=== PATIENT | male | born 1955 | race Caucasian/White ===

== ENCOUNTER 2018-07-26 21:19 | Observation (INO) | payer MEDICAID, MEDICARE ==
[2018-07-26] MEDS ORDERED: NS 0.9% 1000 ML*IV.FLUID IV ONE (21:30)
--- NOTE | 2018-07-26 21:57 | ED ---
Shortness of Breath - HPI Summary HPI Summary: Pt is a 62 year old M presenting to the ED with a chief complaint of shortness of breath. The pt denies chest pain or abd problems. He is presently being treated for bronchitis, and states his lungs feel as though theyre burning, he is sweaty, and has the chills. The pt is a current every day smoker. - History of Current Complaint Chief Complaint: EDShortnessOfBreath Time Seen by Provider: 07/26/18 21:29 Hx Obtained From: Patient Onset/Duration: Gradual Onset, Lasting Days, Still Present Timing: Constant Current Severity: Mild Dyspnea At: Exertion Aggrevating Factors: Movement, Deep Breaths Alleviating Factors: Upright Position Associated Signs & Symptoms: Negative - chest pain, Chills, Diaphoresis - Allergy/Home Medications Allergies/Adverse Reactions: Allergies Allergy/AdvReac Type Severity Reaction Status Date / Time No Known Allergies Allergy Verified 07/26/18 21:25 PMH/Surg Hx/FS Hx/Imm Hx Previously Healthy: Yes Endocrine/Hematology History: Denies: Hx Blood Disorders Sensory History: Denies: Hx Deafness - Immunization History Date of Tetanus Vaccine: unk Date of Influenza Vaccine: unk Infectious Disease History: No Infectious Disease History: Denies: Traveled Outside the [place] in Last 30 Days - Family History Known Family History: Negative: Hypertension - Social History Alcohol Use: None Substance Use Type: Reports: None Smoking Status (MU): Heavy Every Day Tobacco Smoker Review of Systems Positive: Chills, Skin Diaphoresis Negative: Chest Pain Positive: Shortness Of Breath Negative: Abdominal Pain All Other Systems Reviewed And Are Negative: Yes Physical Exam - Summary Physical Exam Summary: Appearance: Well-appearing, Well-nourished, lying in bed comfortably Skin: Warm, dry, no obvious rash Eyes: sclera anicteric, no conjunctival pallor ENT: mucous membranes moist, pharynx appears normal Neck: Supple, nontender Respiratory: Clear to auscultation, no signs of respiratory distress Cardiovascular: Normal S1, S2. No murmurs. Normal distal pulses in tibial and radial bilaterally. Abdomen: Soft, nontender, normal active bowel sounds present Musculoskeletal: Normal, Strength/ROM Intact Neurological: A&Ox3, awake and alert, mentation is normal, speech is fluent and appropriate Psychiatric: affect is normal, does not appear anxious or depressed Triage Information Reviewed: Yes Vital Signs On Initial Exam: Initial Vitals Temp Pulse Resp BP Pulse Ox 99.0 F 98 18 145/89 96 07/26/18 21:20 07/26/18 21:20 07/26/18 21:20 07/26/18 21:20 07/26/18 21:20 Vital Signs Reviewed: Yes Diagnostics - Vital Signs Vital Signs Temp Pulse Resp BP Pulse Ox 07/26/18 21:20 99.0 F 98 18 145/89 96 - Laboratory Result Diagrams: 07/26/18 21:58 07/26/18 21:58 Lab Statement: Any lab studies that have been ordered have been reviewed, and results considered in the medical decision making process. - Radiology CXR Xray Interpretation: Positive (See Comments) - Atelectasis vs. infiltrate of the right lung Radiology Interpretation Completed By: ED Physician - Radiologist has not yet reviewed this report. - EKG 2208 Cardiac Rate: NL - 95bpm EKG Rhythm: Sinus Rhythm ST Segment: Normal Ectopy: None EKG Interpretation: RBBB. Course/Dx - Course Course Of Treatment: Pt is a 62 year old M presenting to the ED with a chief complaint of sob. The pt denies chest or abd pain. The pt is currently being treated for bronchitis, and states he feels as though his lungs are burning and that he is sweating and has chills. The pt is a smoker. - Diagnoses Provider Diagnoses: Pneumonia Discharge - Sign-Out/Discharge Documenting (check all that apply): Patient Departure - Discharge Plan Condition: Stable Disposition: ADMITTED TO [facility] - Billing Disposition and Condition Condition: STABLE Disposition: Admitted to [facility] - Attestation Statements Document Initiated by Arunibe: Yes Documenting Scribe: Zhane Turner Provider For Whom Uriel is Documenting (Include Credential): Lowell Gillette MD. Scribe Attestation: Zhane Rose, callied for Lowell Gillette MD. on 07/27/18 at 0410. Scribe Documentation Reviewed: Yes Provider Attestation: The documentation as recorded by the scribe, Zhane Turner accurately reflects the service I personally performed and the decisions made by me, Lowell Gillette MD. Consult Consult: 0015 - Spoke with Dr. Francois about the patient's condition, he will be the accepting physician to [facility] for the patient.
[2018-07-26 22:35] LABS: ABS Basophils 0.1 10^3/ul (0-0.2); ABS Eosinophils 0.5 10^3/ul (0-0.6); ABS Lymphocytes 1.2 10^3/ul (1.0-4.8); ABS Monocytes 0.8 10^3/ul (0-0.8); ABS Neutrophils 8.6 10^3/ul (1.5-7.7); ABS Nucleated RBC 0 10^3/ul; Eosinophil % 4.5 % (0-6); Hematocrit 39 % (42-52); Hemoglobin 12.8 g/dl (14.0-18.0); Lymphocyte % 10.6 % (25-47); Mean Corpuscular HGB Conc 33 g/dl (31-36); Mean Corpuscular Hemoglobin 28 pg (27-31); Mean Corpuscular Volume 85 fL (80-94); Mean Platelet Volume 8.2 um3 (7.4-10.4); Nucleated Red Blood Cells % 0; Platelet Count 296 10^3/ul (150-450); Red Blood Count 4.54 10^6/ul (4.00-5.40); Red Cell Distribution Width 15 % (10.5-15); White Blood Count 11.3 10^3/ul (3.5-10.8)
[2018-07-26 22:48] LABS: EGFR Non-African American 80.9 (>60)
[2018-07-26 22:52] LABS: INR 0.98 (0.77-1.02)
[2018-07-26 23:01] LABS: Urine Appearance Clear; Urine Blood Negative (Negative); Urine Color Straw; Urine Ketones Negative (Negative); Urine Protein Negative (Negative); Urine Specific Gravity 1.002 (1.010-1.030); Urine Urobilinogen Negative (Negative)
[2018-07-27] MEDS ORDERED: cefTRIAXone(*) 1 GM in NS 0.9% 50 ML* 50 ML IVPB ONE (00:10)
[2018-07-27] MEDS ORDERED: Azithromycin IV(*) 500 MG in NS 0.9% 250 ML* 250 ML IVPB ONE (00:10)
[2018-07-27] MEDS ORDERED: Dextrose 50% Syringe 50 ML* 25 GM/50 ML SYRINGE IV PUSH PRN (04:24)
[2018-07-27] MEDS: Enoxaparin(*) 40 MG/0.4 ML SYR SUBCUT SCH (04:37)
[2018-07-27] MEDS ORDERED: Albuterol 2.5 MG/3 ML NEB.SOL* (0.083%) INH PRN (04:50)
[2018-07-27] MEDS ORDERED: Spiriva Inhaler DEVICE* 1 EACH DEVICE SCH (08:00)
[2018-07-27] MEDS: Tiotropium CAP.INH* CAP.INH/18 MCG (USE ORDER SET !) INH SCH (08:10)
[2018-07-27] MEDS ORDERED: Polyethylene Glycol 3350 BTL* 238 GM BTL PO SCH (09:00)
--- NOTE | 2018-07-27 09:02 | RAD ---
INDICATION: Shortness of breath. Mental status change. Chronic obstructive pulmonary disease. COMPARISON: No relevant prior exams available on the [facility] [place] for comparison. TECHNIQUE: Dual energy PA and routine lateral views of the chest were obtained. REPORT: Elevated lung volumes and both diffuse mild prominence of the interstitial markings and patchy rarefaction of the mid to upper lung zone interstitial markings. The heart, pulmonary vasculature, and mediastinal contours are unremarkable. Healed RIGHT fifth posterior and LEFT seventh and eighth posterior rib fractures. No acute rib fracture evident. IMPRESSION: #. Stigmata of obstructive lung disease. No acute pulmonary or cardiac process evident. R2
[2018-07-27] MEDS: Polyethylene Glycol 3350* 17 GM PACKET PO SCH (09:19)
[2018-07-27] MEDS: Omeprazole CAP* 20 MG PO SCH (09:20)
[2018-07-27] MEDS: Finasteride TAB* 5 MG PO SCH (09:20)
[2018-07-27] MEDS: CloZAPine TAB* 100 MG TAB PO SCH (09:20)
[2018-07-27] MEDS: Docusate CAP* 100 MG PO SCH ×2 (09:20→20:17)
[2018-07-27] MEDS: Isosorbide Mononitrate ER TAB* 30 MG PO SCH (09:20)
[2018-07-27] MEDS: Insulin LISPRO* 1 UNITS UNIT SUBCUT SCH ×4 (09:21→20:17)
[2018-07-27] MEDS: Aspirin EC TAB* 81 MG TAB.EC PO SCH (09:21)
--- NOTE | 2018-07-27 13:39 | PN ---
Subjective Date of Service: 07/27/18 Interval History: Patient is feeling relatively well. No SOB. No CP. Denies wheezing. Denies cough , but nurse reports he has had an intermittently productive cough. Patient denies abdominal pain, diarrhea, dysuria, or other pain. Family History: Unchanged from Admission Social History: Unchanged from Admission Past Medical History: Unchanged from Admission Objective Active Medications: Albuterol (Ventolin 2.5 Mg/3 Ml Neb.Marge*) 2.5 mg INH [id number] AWAKE PRN PRN Reason: SOB/WHEEZING Aspirin (Aspirin Ec Tab*) 81 mg PO DAILY [facility] Last Admin: 07/27/18 09:21 Dose: 81 mg Atorvastatin Calcium (Lipitor*) 10 mg PO 2100 [facility] Clozapine (Clozapine Tab*) 400 mg PO QPM [facility] Clozapine (Clozapine Tab*) 100 mg PO DAILY [facility] Last Admin: 07/27/18 09:20 Dose: 100 mg Device (Tiotropium Inhaler Device*) 1 each .SEE ORDER .USE w/ SPIRIVA CAPS [facility] Dextrose (D50w Syringe 50 Ml*) 12.5 gm IV PUSH .FOR FS < 60 - SS PRN PRN Reason: FS < 60 Docusate Sodium (Colace Cap*) 100 mg PO BID [facility] Last Admin: 07/27/18 09:20 Dose: 100 mg Enoxaparin Sodium (Lovenox(*)) 40 mg SUBCUT Q24H [facility] Last Admin: 07/27/18 04:37 Dose: 40 mg Finasteride (Proscar Tab*) 5 mg PO DAILY [facility] Last Admin: 07/27/18 09:20 Dose: 5 mg Ceftriaxone Sodium 1 gm/ (Sodium Chloride) 50 mls @ 200 mls/hr IVPB Q24H [facility] Azithromycin 500 mg/ Sodium (Chloride) 250 mls @ 250 mls/hr IVPB Q24H [facility] Insulin Glargine (Lantus(*)) 20 units SUBCUT QPM [facility] Insulin Human Lispro (Humalog*) 0 units SUBCUT ACHS [facility]; Protocol Last Admin: 07/27/18 12:18 Dose: 2 units Isosorbide Mononitrate (Imdur Er Tab*) 30 mg PO DAILY [facility] Last Admin: 07/27/18 09:20 Dose: 30 mg Omeprazole (Prilosec Cap*) 20 mg PO DAILY [facility] Last Admin: 07/27/18 09:20 Dose: 20 mg Polyethylene Glycol/Electrolytes (Miralax*) 17 gm PO QAM [facility] Last Admin: 07/27/18 09:19 Dose: 17 gm Senna (Senokot Tab*) 1 tab PO QPM [facility] Tiotropium [place] (Spiriva Cap.Inh*) 1 cap INH DAILY [facility] Last Admin: 07/27/18 08:10 Dose: 1 cap Vital Signs - 8 hr 07/27/18 07/27/18 07/27/18 07:38 08:00 08:10 Temperature 98.6 F Pulse Rate 77 80 Respiratory 19 19 Rate Blood Pressure 137/81 (mmHg) O2 Sat by Pulse 96 96 Oximetry Oxygen Devices in Use Now: None Appearance: Patient is a 62yo male who appears stated age and is sitting in the bed in NAD. Eyes: No Scleral Icterus, PERRLA Ears/Nose/Mouth/Throat: NL Teeth, Lips, Gums, Clear Oropharnyx, Mucous Membranes Moist Neck: NL Appearance and Movements; NL JVP, Trachea Midline Respiratory: Symmetrical Chest Expansion and Respiratory Effort, Clear to Auscultation Cardiovascular: NL Sounds; No Murmurs; No JVD, RRR, No Edema Abdominal: NL Sounds; No Tenderness; No Distention, No Hepatosplenomegaly Lymphatic: No Cervical Adenopathy Extremities: No Edema, No Clubbing, Cyanosis Skin: No Rash or Ulcers, No Nodules or Sclerosis Neurological: Alert and Oriented x 3, NL Sensation, NL Muscle Strength and Tone , - - CN II-XII intact. Result Diagrams: 07/26/18 21:58 07/26/18 21:58 Microbiology and Other Data: Microbiology 07/27/18 09:30 Gram Stain - Final Sputum 07/27/18 09:30 Legionella Urinary Antigen - Final Urine Negative Legionella Antigen Streptococcus pneumoniae Ag Screen - Final Negative S. pneumo Antigen 07/27/18 01:40 Nasal Screen MRSA (PCR) - Final Nasal Mrsa Not Detected Assess/Plan/Problems-Billing Assessment: Patient is a 62yo male with a PMH for HTN, HLD, DM, schizophrenia, with ongoing tobacco abuse who is admitted with shortness of breath and cough and is being treated for CAP. - Patient Problems (1) CAP (community acquired pneumonia) Current Visit: Yes Status: Acute Code(s): J18.9 - PNEUMONIA, UNSPECIFIED ORGANISM SNOMED Code(s): 186709246 Comment: - Minimal symptoms - Negative Procalcitonin and CXR - Discontinue Antibiotics and monitor - Pulmonary toilet - No indication for steroids (2) Tobacco abuse Current Visit: Yes Status: Acute Code(s): Z72.0 - TOBACCO USE SNOMED Code( s): 975687722 Comment: - Counseled on the effect of smoking on his health. - Interested in pharmacologic aids for smoking cessation (3) HTN (hypertension) Current Visit: Yes Status: Acute Code(s): I10 - ESSENTIAL (PRIMARY) HYPERTENSION SNOMED Code(s): 94751625 Comment: - Normotensive - Continue Imdur (4) DMII (diabetes mellitus, type 2) Current Visit: Yes Status: Acute Comment: - Lantus and SSI - Good control (5) Schizophrenia Current Visit: Yes Status: Acute Code(s): F20.9 - SCHIZOPHRENIA, UNSPECIFIED SNOMED Code(s): 98541111 Comment: - Euthymic - Continue Clozapine - No signs of agranulocytosis (6) Full code status Current Visit: Yes Status: Acute Code(s): Z78.9 - OTHER SPECIFIED HEALTH STATUS SNOMED Code(s): 761905130 (7) DVT prophylaxis Current Visit: Yes Status: Acute Code(s): VZA9340 - SNOMED Code(s): 128130281 Comment: -Lovenox Status and Disposition: Observation
--- NOTE | 2018-07-27 13:51 | HP ---
ADMISSION HISTORY AND PHYSICAL: DATE OF ADMISSION: 07/27/18. PRIMARY CARE DOCTOR: Unknown. CHIEF COMPLAINT: Shortness of breath. HISTORY OF PRESENT ILLNESS: Mr. Su 62-year-old man with a history of schizophrenia, who presented to the emergency department this evening with shortness of breath. He is a poor historian, but he reports that he has a doctor over the area, who he does not know the name of, who treated him for a lung infection in the last week with amoxicillin and steroids. It sounds like he was thought to have COPD exacerbation. The patient does report fever, chills , and sweating as well as a cough, which is nonproductive. The patient denies any chest pain or palpitations. The patient does not know whether he has COPD or not. Denies use of any inhalers at home. The patient is a new resident at an institution called [facility] in the [facility]. It sounds like this is an assisted living or custodial for people with mental illness. He has a psychiatry provider that comes to the facility, named Erica, who prescribes those medications for him. PAST MEDICAL HISTORY: Includes schizophrenia, BPH, type 2 diabetes, GERD, hyperlipidemia, and constipation. PAST SURGICAL HISTORY: None. MEDICATIONS: On admission are: 1. Amoxicillin 500 mg p.o. q.12 hours. 2. Aspirin 81 mg p.o. daily. 3. Atorvastatin 20 mg p.o. q. p.m. 4. Clozapine 100 mg p.o. q. a.m. and 400 mg p.o. q. p.m. 5. Docusate 100 mg p.o. b.i.d. 6. Finasteride 5 mg p.o. daily. 7. Insulin glargine 20 units subcu daily. 8. Isosorbide mononitrate 30 mg p.o. daily. 9. Multivitamin 1 tab p.o. daily. 10. Pantoprazole 40 mg p.o. daily. 11. MiraLAX 2 packets p.o. q. a.m. 12. Prednisone 40 mg p.o. daily. 13. Senna 1 tab p.o. daily. ALLERGIES: None. FAMILY HISTORY: His father of black lung disease. Has 8 sisters and 1 brother who are in reasonable health. 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 He is . He has 1 child. His mother is his healthcare proxy and her name is Lluvia Su, and she lives in [place], [place]. He continues to smoke tobacco 1 pack per day. He denies alcohol or drug use. REVIEW OF SYSTEMS: The patient denies any anorexia. He does feel he has fevers. He denies any chest pain or palpitations. He is not sure about any cardiac history. The patient denies any hemoptysis, but has a cough and shortness of breath. The patient denies any abdominal pain, diarrhea, or constipation in the last 24 hours. Remainder of a 14-point review of systems is negative other than mentioned in the HPI. PHYSICAL EXAMINATION GENERAL: He is alert, in no acute distress. VITAL SIGNS: Temperature is 37.3, pulse is 98, respirations 18, blood pressure is 145/89, O2 sats are 96% to 100% on room air. HEENT: Head is normocephalic, atraumatic. Sclerae anicteric. Pupils equal, round, and reactive to light and accommodation. Oropharynx is moist. No lesions. NECK: No JVD. No carotid bruit. No thyromegaly. LUNGS: Clear to auscultation, but diminished throughout. HEART: Regular rate and rhythm without murmurs or gallops ABDOMEN: Soft, nontender. Positive bowel sounds. No hepatosplenomegaly. EXTREMITIES: No peripheral edema. Dorsalis pedis pulses 1+ bilaterally. NEUROLOGIC: Cranial nerves II through XII are intact. Motor strength is 5/5 throughout. Deep tendon reflexes are symmetric. DIAGNOSTIC STUDIES/LAB DATA: Sodium 135, potassium 3.5, chloride 101, bicarb 26, BUN 14, creatinine 0.95, glucose 167, calcium 9.3. Albumin 3.9, AST 13, ALT 18, bilirubin 0.8. Lactic acid 1.0, troponin 0.00. White count 11.3, hemoglobin 12.8, hematocrit 39%, platelets of 296. INR was 0.98. Urinalysis was negative. EKG shows a normal sinus rhythm and right bundle-branch block. Chest x-ray shows right middle lobe infiltrate. ASSESSMENT AND PLAN: 1. A 62-year-old man presenting with lobar pneumonia, failing outpatient treatment. The patient will be admitted to the hospital for treatment of the pneumonia with ceftriaxone and azithromycin. We can check his urine for pneumococcal and Legionella antigens. If he coughs up any sputum, we can get a sputum culture. If he has wheezing or hypoxia, we can treat him for chronic obstructive pulmonary disease with nebulizers and steroids, but at this point, I am holding his steroids. 2. For his diabetes, we will continue on his Lantus and medication and give him sliding scale insulin as needed. 3. He appears euvolemic. His electrolytes are normal. 4. Code status is full. 5. DVT prophylaxis will be with Lovenox, as he is at high risk given his age and lung disease. [id number]/[facility] #: [id number] MTDD
[2018-07-27] MEDS ORDERED: Insulin GLARGINE(*) 1 UNITS UNIT SUBCUT SCH (18:00)
[2018-07-27] MEDS ORDERED: Senna TAB PO SCH (18:00)
[2018-07-27] MEDS ORDERED: CloZAPine TAB* 100 MG TAB PO SCH (18:00)
[2018-07-27] MEDS ORDERED: cefTRIAXone(*) 1 GM in NS 0.9% 50 ML* 50 ML IVPB SCH (19:00)
[2018-07-27] MEDS ORDERED: Azithromycin IV(*) 500 MG in NS 0.9% 250 ML* 250 ML IVPB SCH (19:15)
[2018-07-27] MEDS ORDERED: Atorvastatin* 10 MG TAB PO SCH (21:00)
[2018-07-28] MEDS: Enoxaparin(*) 40 MG/0.4 ML SYR SUBCUT SCH (05:42)
[2018-07-28] MEDS: Tiotropium CAP.INH* CAP.INH/18 MCG (USE ORDER SET !) INH SCH (07:35)
[2018-07-28] MEDS: Insulin LISPRO* 1 UNITS UNIT SUBCUT SCH (08:35)
[2018-07-28] MEDS: CloZAPine TAB* 100 MG TAB PO SCH (08:36)
[2018-07-28] MEDS: Docusate CAP* 100 MG PO SCH (08:36)
[2018-07-28] MEDS: Omeprazole CAP* 20 MG PO SCH (08:36)
[2018-07-28] MEDS: Aspirin EC TAB* 81 MG TAB.EC PO SCH (08:36)
[2018-07-28] MEDS: Isosorbide Mononitrate ER TAB* 30 MG PO SCH (08:36)
[2018-07-28] MEDS: Finasteride TAB* 5 MG PO SCH (08:36)
[2018-07-28] MEDS: Polyethylene Glycol 3350* 17 GM PACKET PO SCH (08:39)
[2018-07-28 08:45] VITALS: BP 114/74
[2018-07-28] MEDS ORDERED: Pneumococcal *Vac Polyvalent 0.5 ML VIAL ONE (09:17)
--- NOTE | 2018-07-29 09:06 | DS ---
DISCHARGE SUMMARY: DATE OF ADMISSION: 07/27/18 DATE OF DISCHARGE: 07/28/18 PRIMARY CARE PROVIDER: Unknown. MY ATTENDING WHILE IN THE HOSPITAL: Dawood Ramirez MD * (DICTATED BY DANIEL GANT) PRIMARY DISCHARGE DIAGNOSIS: Shortness of breath with possible chronic obstructive pulmonary disease exacerbation. SECONDARY DISCHARGE DIAGNOSES: 1. Schizophrenia. 2. Benign prostatic hypertrophy. 3. Type 2 diabetes mellitus. 4. Gastroesophageal reflux disease. 5. Hyperlipidemia. 6. Constipation. STUDIES DONE WHILE IN THE HOSPITAL: Chest x-ray from 07/26/18 read as ischemia , obstructive lung disease, no acute cardiopulmonary process evident. Electrocardiogram from 07/26/18 shows normal sinus rhythm. No ST segment abnormalities. No hypertrophy enlargement, right bundle branch block, QTc of 42. MEDICATIONS AT DISCHARGE: 1. Finasteride 5 mg p.o. daily. 2. Clozapine 100 mg p.o. daily. 3. Docusate 100 mg p.o. b.i.d. 4. Aspirin 1 tab p.o. daily. 5. Insulin glargine 20 units subcutaneous q.p.m. 6. Polyethylene glycol 2 doses p.o. q.a.m. as needed. 7. Clozapine 400 mg p.o. q.p.m. 8. Lipitor 10 mg p.o. daily. 9. Senna 1 tab p.o. q.p.m. 10. Metoprolol 40 mg p.o. daily. 11. Multivitamin 1 tab p.o. daily. 12. Imdur 30 mg p.o. daily. 13. Nicotine inhaler 10 mg inhalation q.2 hours as needed. 14. Spiriva 1 cap inhalation daily. 15. Tessalon 100 mg p.o. t.i.d. as needed. HOSPITAL COURSE: This is a brief summary of the patient's presentation. For more details, please see history and physical from Dr. Juan Francois, on . In brief, the patient is a 62-year-old male with past medical history significant for the above, who came to the emergency department with shortness of breath who recently was diagnosed with bronchitis and was treated with amoxicillin and steroids, however, this persisted with subjective fevers, cough , and chills. The patient was admitted to the hospital and treated empirically for community-acquired pneumonia with ceftriaxone and azithromycin. The patient on examination on the day of admission had dramatic improvement in his symptoms. The patient had no indication for steroids. The patient had a slight leukocytosis on admission. The patient had a negative lactic acid. Procalcitonin less than 0.1. The patient's antibiotics were discontinued. The patient had no abnormalities in his urinalysis. The patient had no persistent respiratory symptoms and was discharged on 07/28/18 for symptomatic control. PHYSICAL EXAM ON THE DAY OF DISCHARGE: General: The patient is a 62-year-old male, who appears stated age and sitting comfortably in bed, in no acute distress. HEENT: Head: Normocephalic, atraumatic. Sclerae anicteric. No conjunctival injection. Nasal mucosa moist. Oral mucosa moist. No pharyngeal erythema, discharge, or exudates. Significant sialorrhea. Neck: Supple, nontender. No lymphadenopathy. No carotid bruits auscultated. No JVD. Cardiac: Regular rate and rhythm. No clicks, murmurs, gallops, or rubs. Pulses 2+ bilaterally in dorsalis pedis, posterior tibialis, and radial areas. Respiratory: Clear to auscultation bilaterally. No wheezes, rales, or rhonchi. Good air exchange bilaterally. Abdomen: Soft, nontender, nondistended. Bowel sounds present, normoactive in all 4 quadrants. No hepatosplenomegaly. No abdominal bruits auscultated. No hepatojugular reflux. Skin: Clean, dry, intact. No rash. Neuro: Cranial nerves II through XII intact. No focal deficits. Alert and oriented x3. Psychiatric: Pleasant and cooperative. Flat affect, euthymic. DISCHARGE PLAN: The patient will be discharged back to [facility]. The patient lives there for assisted living given his psychiatric illness. The patient will be continued on his home medication of Lantus for his diabetes. The patient will be given Tessalon for symptomatic control of his cough. The patient has no indication for continued antibiotics, steroids, or other treatment of his likely viral bronchitis. The patient should followup with his psychiatrist and primary care provider within 1 week for general medical management. The patient has likely COPD given chest x-ray results. The patient was started on Spiriva. The patient was counseled about the risks of continued tobacco abuse and he was amenable to smoking cessation with pharmacologic aids and was prescribed a nicotine inhaler which he stated was his preference. The patient should engage in activities as tolerated and have a heart-healthy diet without caffeine. TIME SPENT: Approximately 45 minutes were spent on the discharge of the patient , 20 of which were spent [id number] with the patient, obtaining history and physical, discussing treatment plan. DANIEL GANT [id number]/[facility] #: [id number] KAYLEE
== END 2018-07-28 09:50 | disposition home or self-care (01) ==
LOC: ED 21:19 → MED 07-27 00:17
PROVIDERS: ADMIT Internal Medicine; ATTEND Internal Medicine
DX: R06.02 Shortness of breath (principal); J18.1 Lobar pneumonia, unspecified organism; F20.9 Schizophrenia, unspecified; N40.0 Benign prostatic hyperplasia without lower urinary tract symptoms; E11.9 Type 2 diabetes mellitus without complications; K21.9 Gastro-esophageal reflux disease without esophagitis; E78.5 Hyperlipidemia, unspecified; K59.00 Constipation, unspecified; Z79.82 Long term (current) use of aspirin; F17.210 Nicotine dependence, cigarettes, uncomplicated; I10 Essential (primary) hypertension; Z23 Encounter for immunization; I45.10 Unspecified right bundle-branch block
CPT/HCPCS: 36415; 71046; 80053; 81003; 83605; 84145; 84484; 85025; 85610; 87040; 87070; 87205; 87641; 87899; 90471; 90686; 90732; 93005; 94640; 96361; 96365; 96366; 96372; 99284; A9270-GY; G0008; G0009; G0378; J0456; J0696; J1650

== ENCOUNTER 2019-03-11 18:27 | Emergency (ER) | payer MEDICARE, MEDICAID ==
--- NOTE | 2019-03-11 22:21 | ED ---
Complex/Multi-Sys Presentation - HPI Summary HPI Summary: Patient is a 63 y/o M presenting to ED with complaints of diarrhea and back pain. Diarrhea is reported to have onset 3 days ago and is characterized as watery. No blood in diarrhea was noted by the patient, he reports that he has been experiencing multiple episodes of diarrhea each day. Back pain is described as chronic but has worsened today. Hx of degenerative disc disease is endorsed by patient. He also claims that he has been experiencing urinary incontinence for "a long time". Fever and chills are denied. PMHx of diabetes, schizophrenia, CAD, BPH, GERD. On triage, pain is rated 6/10, nothing is noted to aggravate/alleviate Sx. Home medications and allergies are reviewed. - History Of Current Complaint Chief Complaint: EDGeneral Time Seen by Provider: 03/11/19 22:19 Hx Obtained From: Patient Onset/Duration: Lasting Hours - back pain exacerbation today, Lasting Days - diarrhea 3 days., Still Present Timing: Constant - back pain exacerbation today, Hours - back pain exacerbation today, Days - diarrhea 3 days. Severity Currently: Moderate Severity Initially: Mild Location: Pain At: - back Associated Signs And Symptoms: Positive: Diarrhea, Back Pain, Other - POSITIVE - URINARY INCONTINENCE; NEGATIVE - CHILLS. Negative: Fever - Allergies/Home Medications Allergies/Adverse Reactions: Allergies Allergy/AdvReac Type Severity Reaction Status Date / Time No Known Allergies Allergy Verified 07/26/18 21:25 PMH/Surg Hx/FS Hx/Imm Hx Endocrine/Hematology History: Denies: Hx Blood Disorders Respiratory History: Reports: Hx Chronic Obstructive Pulmonary Disease (COPD), Other Respiratory Problems/Disorders - PE Sensory History: Denies: Hx Contacts or Glasses, Hx Deafness, Hx Hearing Aid Opthamlomology History: Denies: Hx Contacts or Glasses - Immunization History Date of Tetanus Vaccine: unk Date of Influenza Vaccine: unk Infectious Disease History: No Infectious Disease History: Denies: Traveled Outside the [place] in Last 30 Days - Family History Known Family History: Negative: Hypertension - Social History Alcohol Use: None Substance Use Type: Reports: None Smoking Status (MU): Heavy Every Day Tobacco Smoker Review of Systems Negative: Fever, Chills Positive: Diarrhea Positive: incontinence - URINARY Musculoskeletal: Other - POSITIVE - BACK PAIN All Other Systems Reviewed And Are Negative: Yes Physical Exam - Summary Physical Exam Summary: Appearance: Well-appearing, Well-nourished, lying in bed comfortably Skin: Warm, dry, no obvious rash Eyes: sclera anicteric, no conjunctival pallor ENT: mucous membranes moist, pharynx appears normal Neck: Supple, nontender Respiratory: Clear to auscultation, no signs of respiratory distress Cardiovascular: Normal S1, S2. No murmurs. Normal distal pulses in tibial and radial bilaterally. Abdomen: Soft, nontender, normal active bowel sounds present Musculoskeletal: tremor in RUE, Strength/ROM Intact, all else normal Neurological: A&Ox3, awake and alert, mentation is normal, speech is fluent and appropriate Psychiatric: affect is normal, does not appear anxious or depressed Triage Information Reviewed: Yes Vital Signs On Initial Exam: Initial Vitals Temp Pulse Resp BP Pulse Ox 98.5 F 89 20 147/102 96 03/11/19 18:29 03/11/19 18:29 03/11/19 18:29 03/11/19 18:29 03/11/19 18:29 Vital Signs Reviewed: Yes Diagnostics - Vital Signs Vital Signs Temp Pulse Resp BP Pulse Ox 03/11/19 20:22 98.3 F 85 18 151/101 98 03/11/19 18:29 98.5 F 89 20 147/102 96 - Laboratory Result Diagrams: 03/11/19 22:31 03/11/19 22:31 Lab Statement: Any lab studies that have been ordered have been reviewed, and results considered in the medical decision making process. Re-Evaluation - Re-Evaluation First Eval Re-Evaluation Time: 00:01 Comment: Results of labs discussed with patient, he will be discharged to home. He is agreeable with this. Complex Multi-Symp Course/Dx Course Of Treatment: Patient is a 63 y/o M presenting to ED with complaints of diarrhea and back pain. Diarrhea is reported to have onset 3 days ago and is characterized as watery. No blood in diarrhea was noted by the patient, he reports that he has been experiencing multiple episodes of diarrhea each day. Back pain is described as chronic but has worsened today. Hx of degenerative disc disease is endorsed by patient. He also claims that he has been experiencing urinary incontinence for "a long time". Fever and chills are denied. RUE tremor noted on physical exam. Labs showed glucose 248. During ED course, patient received lomotil 2 tabs PO. Results of labs discussed with patient, he will be discharged to home. He is agreeable with this. - Diagnoses Provider Diagnoses: Diarrhea Discharge - Sign-Out/Discharge Documenting (check all that apply): Patient Departure - discharge Patient Received Moderate/Deep Sedation with Procedure: No - Discharge Plan Condition: Good Disposition: HOME Prescriptions: Diphenoxylat/Atrop 2.5-0.025M* [Lomotil TAB*] 1 tab PO QID PRN #12 tab MDD 4 PRN Reason: Diarrhea Patient Education Materials: Acute Diarrhea (ED), Chronic Back Pain (DC) Referrals: Erik SMITH,Faustino Patel [Primary Care Provider] - - Billing Disposition and Condition Condition: GOOD Disposition: Home - Attestation Statements Document Initiated by Uriel: Yes Documenting Scribe: NASIM ARAMBULA Provider For Whom Uriel is Documenting (Include Credential): GEOFF GROVES MD Scribe Attestation: NASIM Rose, scribed for GEOFF GROVES MD on 03/12/19 at 0641. Scribe Documentation Reviewed: Yes Provider Attestation: The documentation as recorded by the NASIM aprker accurately reflects the service I personally performed and the decisions made by me, GEOFF GROVES MD Status of Scribe Document: Viewed
[2019-03-11 22:49] LABS: ABS Basophils 0.1 10^3/ul (0-0.2); ABS Eosinophils 0.4 10^3/ul (0-0.6); ABS Lymphocytes 1.8 10^3/ul (1.0-4.8); ABS Monocytes 0.8 10^3/ul (0-0.8); ABS Neutrophils 6.8 10^3/ul (1.5-7.7); Eosinophil % 3.7 %; Hematocrit 42 % (42-52); Hemoglobin 14.4 g/dL (14.0-18.0); Lymphocyte % 17.8 %; Mean Corpuscular HGB Conc 34 g/dL (31-36); Mean Corpuscular Hemoglobin 29 pg (27-31); Mean Corpuscular Volume 84 fL (80-94); Platelet Count 290 10^3/uL (150-450); Red Blood Count 5.03 10^6 /uL (4.18-5.48); Red Cell Distribution Width 15 % (10.5-15); White Blood Count 9.9 10^3/uL (3.5-10.8)
[2019-03-11 23:05] LABS: Albumin 4.3 g/dL (3.2-5.2); Albumin/Globulin Ratio 1.8 (1-3); BUN/Creatinine Ratio 13.2 (8-20); C Reactive Protein 7.93 mg/L (<8.01); Calcium 9.4 mg/dL (8.6-10.3); EGFR African American 102.5 (>60); EGFR Non-African American 84.7 (>60); Globulin 2.4 g/dL (2-4); Potassium 4.4 mmol/L (3.5-5.0); Total Bilirubin 0.4 mg/dL (0.2-1.0); Total Protein 6.7 g/dL (6.4-8.9)
[2019-03-12] MEDS ORDERED: Diphenoxylat/Atrop 2.5-0.025M* 1 TAB PO ONE (00:13)
[2019-03-12 00:31] VITALS: BP 129/90
== END 2019-03-12 00:13 | disposition home or self-care (01) ==
LOC: ED 18:27
DX: R19.7 Diarrhea, unspecified (principal); M54.9 Dorsalgia, unspecified; R32 Unspecified urinary incontinence; R25.1 Tremor, unspecified; E11.9 Type 2 diabetes mellitus without complications; F17.200 Nicotine dependence, unspecified, uncomplicated
CPT/HCPCS: 36415; 80053; 85025; 86140; 99282; A9270-GY

== ENCOUNTER 2023-03-20 08:32 | Observation (INO) ==
[2023-03-20] MEDS ORDERED: Nicotine PATCH 14 MG/24 HR PATCH TRANSDERM ONE (08:40)
[2023-03-20 09:16] LABS: ABS Basophils 0.1 10^3/uL (0.0-0.1); ABS Eosinophils 0.2 10^3/uL (0.0-0.5); ABS Lymphocytes 0.8 10^3/uL (1.0-4.8); ABS Monocytes 0.9 10^3/uL (0.0-1.1); ABS Neutrophils 5.5 10^3/uL (1.5-7.6); ABS Nucleated RBC 0.01 10^3/ul; Eosinophil % 2.7 %; Hemoglobin 14.5 g/dL (13.2-16.3); Mean Corpuscular Hemoglobin 27.6 pg (27-33); Mean Corpuscular Hgb Conc 33.7 g/dL (31-36); Mean Platelet Volume 8.2 fL (7.5-11.2); Nucleated Red Blood Cells % 0.1 /100 WBC (0.0-0.4); Platelet Count 302 10^3/uL (150-450); Red Blood Count 5.24 10^6/uL (4.06-5.63); Red Cell Distribution Width 15.4 % (12-17); White Blood Count 7.5 10^3/uL (3.6-10.2)
[2023-03-20 09:53] LABS: Albumin 4.3 g/dL (3.2-5.2); Albumin/Globulin Ratio 2.4 (1-3); C Reactive Protein 2.61 mg/L (<8.01); Calcium 9.7 mg/dL (8.6-10.3); Creatinine, Serum 0.87 mg/dL (0.67-1.17); Globulin 1.8 g/dL (2-4); Magnesium 1.9 mg/dL (1.9-2.7); Potassium 4.1 mmol/L (3.5-5.0); Total Protein 6.1 g/dL (6.4-8.9); eGFR CKD-EPI 95.8 (>60)
[2023-03-20] MEDS ORDERED: Iodixanol (CONTRAST) 320 MG/ML 100 ML SDV IV ONE (09:59)
[2023-03-20 11:35] LABS: High Sensitivity Troponin 1 Hr 11 pg/mL (<20)
[2023-03-20] MEDS ORDERED: methylPREDNISolone SOD SUCC 125 mg 2 ML VIAL IV ONE (11:37)
[2023-03-20] MEDS ORDERED: Albuterol/Ipratropium NEB.SOL (2.5/0.5 MG) 3 ML NEB.SOLN INH ONE (11:37)
[2023-03-20 12:00] LABS: TSH Ultra Thyroid Stim Horm 2.92 mcIU/mL (0.34-5.60)
[2023-03-20 12:25] LABS: PCO2 Arterial 40 mmHg (35-45)
[2023-03-20 12:38] LABS: PO2 Arterial 59 mmHg (80-100)
[2023-03-20] MEDS ORDERED: Cyanocobalamin INJ 1,000 MCG/ML VIAL 1 ML VIAL IM ONE (13:14)
[2023-03-20] MEDS ORDERED: Bismuth Subsalicylate (BTL) 525 MG/30 ML (BULK BTL) PO PRN (13:59)
[2023-03-20] MEDS ORDERED: Carbidopa/Levodop 25/100 MG TAB PO SCH (14:00)
[2023-03-20] MEDS ORDERED: Dextrose 50% Syringe 50 ml 25 GM/50 ML SYRINGE IV PUSH PRN ×2 (14:04→20:51)
[2023-03-20] MEDS: Carbidopa/Levodop 25/100 MG TAB PO SCH ×2 (14:38→22:01)
[2023-03-20] MEDS: Enoxaparin 40 MG/0.4 ML SYR SUBCUT SCH (14:39)
[2023-03-20] MEDS ORDERED: NS 0.9% 1000 ml BAG 1,000 ML IV SCH (14:45)
[2023-03-20] MEDS: Nicotine PATCH 14 MG/24 HR PATCH TRANSDERM SCH (15:26)
[2023-03-20] MEDS: Albuterol/Ipratropium NEB.SOL (2.5/0.5 MG) 3 ML NEB.SOLN INH SCH ×2 (15:37→19:14)
[2023-03-20] MEDS: Magnesium Hydroxide LIQ 30 ML UDC PO PRN (17:10)
[2023-03-20 20:41] LABS: Glucose Confirmatory 410 mg/dL (70-100)
[2023-03-20] MEDS: Insulin GLARGINE 100 un/ml 10 ml VIAL SUBCUT SCH (22:04)
[2023-03-20] MEDS: Nicotine GUM 4MG FRUIT FLAVOR PO PRN (22:39)
[2023-03-20] MEDS ORDERED: Nicotine Lozenge mini 4 MG LOZNG.MINI MT PRN (22:50)
[2023-03-21] MEDS: Nicotine GUM 4MG FRUIT FLAVOR PO PRN ×6 (05:03→21:04)
[2023-03-21 07:07] LABS: Calcium 9.4 mg/dL (8.6-10.3); Creatinine, Serum 0.9 mg/dL (0.67-1.17); Magnesium 2.2 mg/dL (1.9-2.7); Phosphorus 2.5 mg/dL (2.5-5.0); Potassium 4.7 mmol/L (3.5-5.0); eGFR CKD-EPI 94.8 (>60)
[2023-03-21] MEDS: Albuterol/Ipratropium NEB.SOL (2.5/0.5 MG) 3 ML NEB.SOLN INH SCH ×4 (07:39→19:30)
[2023-03-21] MEDS: Senna TAB 8.6 mg TAB PO SCH (08:55)
[2023-03-21] MEDS: Carbidopa/Levodop 25/100 MG TAB PO SCH ×3 (08:56→20:59)
[2023-03-21] MEDS: Isosorbide Mononit ER 30mg TAB PO SCH (08:56)
[2023-03-21] MEDS: Multivitamins/Minerals TAB PO SCH (08:56)
[2023-03-21] MEDS: Nicotine PATCH 14 MG/24 HR PATCH TRANSDERM SCH (08:57)
[2023-03-21] MEDS ORDERED: Polyethylene Glycol 3350 17 GM PACKET PO SCH (09:00)
[2023-03-21] MEDS ORDERED: SPIRIVA Respimat (tiotropium) 2.5 mcg/inh Inhaler INH SCH (09:00)
[2023-03-21] MEDS: Enoxaparin 40 MG/0.4 ML SYR SUBCUT SCH (13:52)
[2023-03-21] MEDS ORDERED: Polyethylene Glycol 3350 17 GM PACKET PO PRN (14:23)
[2023-03-21] MEDS: Insulin GLARGINE 100 un/ml 10 ml VIAL SUBCUT SCH (21:02)
[2023-03-21] MEDS: Magnesium Hydroxide LIQ 30 ML UDC PO PRN (21:03)
[2023-03-22] MEDS: Albuterol/Ipratropium NEB.SOL (2.5/0.5 MG) 3 ML NEB.SOLN INH SCH ×4 (07:47→19:29)
[2023-03-22] MEDS: Carbidopa/Levodop 25/100 MG TAB PO SCH ×3 (09:30→21:34)
[2023-03-22] MEDS: Senna TAB 8.6 mg TAB PO SCH (09:30)
[2023-03-22] MEDS: Multivitamins/Minerals TAB PO SCH (09:31)
[2023-03-22] MEDS: Isosorbide Mononit ER 30mg TAB PO SCH (09:31)
[2023-03-22] MEDS: Nicotine GUM 4MG FRUIT FLAVOR PO PRN ×2 (09:32→13:59)
[2023-03-22] MEDS: Nicotine PATCH 14 MG/24 HR PATCH TRANSDERM SCH (09:32)
[2023-03-22] MEDS: Enoxaparin 40 MG/0.4 ML SYR SUBCUT SCH (14:09)
[2023-03-22] MEDS: Magnesium Hydroxide LIQ 30 ML UDC PO PRN (16:32)
[2023-03-22] MEDS: Polyethylene Glycol 3350 17 GM PACKET PO PRN (16:32)
[2023-03-22] MEDS: Insulin GLARGINE 100 un/ml 10 ml VIAL SUBCUT SCH (21:35)
[2023-03-23] MEDS: Albuterol/Ipratropium NEB.SOL (2.5/0.5 MG) 3 ML NEB.SOLN INH SCH ×4 (07:54→18:00)
[2023-03-23] MEDS: Polyethylene Glycol 3350 17 GM PACKET PO PRN (08:14)
[2023-03-23] MEDS: Multivitamins/Minerals TAB PO SCH (08:14)
[2023-03-23] MEDS: Isosorbide Mononit ER 30mg TAB PO SCH (08:14)
[2023-03-23] MEDS: Magnesium Hydroxide LIQ 30 ML UDC PO PRN (08:14)
[2023-03-23] MEDS: Senna TAB 8.6 mg TAB PO SCH (08:14)
[2023-03-23] MEDS: Carbidopa/Levodop 25/100 MG TAB PO SCH ×3 (08:15→20:46)
[2023-03-23] MEDS: Nicotine PATCH 14 MG/24 HR PATCH TRANSDERM SCH (08:18)
[2023-03-23] MEDS: Enoxaparin 40 MG/0.4 ML SYR SUBCUT SCH (14:07)
[2023-03-23] MEDS: Nicotine GUM 4MG FRUIT FLAVOR PO PRN (16:23)
[2023-03-23] MEDS: Insulin GLARGINE 100 un/ml 10 ml VIAL SUBCUT SCH (20:47)
[2023-03-24] MEDS: Albuterol/Ipratropium NEB.SOL (2.5/0.5 MG) 3 ML NEB.SOLN INH SCH ×4 (07:05→19:21)
[2023-03-24] MEDS: Carbidopa/Levodop 25/100 MG TAB PO SCH ×3 (10:16→21:46)
[2023-03-24] MEDS: Senna TAB 8.6 mg TAB PO SCH (10:17)
[2023-03-24] MEDS: Multivitamins/Minerals TAB PO SCH (10:17)
[2023-03-24] MEDS: Isosorbide Mononit ER 30mg TAB PO SCH (10:17)
[2023-03-24] MEDS: Nicotine PATCH 14 MG/24 HR PATCH TRANSDERM SCH (10:19)
[2023-03-24] MEDS: Nicotine GUM 4MG FRUIT FLAVOR PO PRN ×2 (10:29→15:06)
[2023-03-24] MEDS: Enoxaparin 40 MG/0.4 ML SYR SUBCUT SCH (14:07)
[2023-03-24] MEDS: Insulin GLARGINE 100 un/ml 10 ml VIAL SUBCUT SCH (21:50)
[2023-03-25] MEDS: Albuterol/Ipratropium NEB.SOL (2.5/0.5 MG) 3 ML NEB.SOLN INH SCH ×3 (07:31→19:09)
[2023-03-25] MEDS: Carbidopa/Levodop 25/100 MG TAB PO SCH ×3 (08:01→20:26)
[2023-03-25] MEDS: Nicotine PATCH 14 MG/24 HR PATCH TRANSDERM SCH (08:02)
[2023-03-25] MEDS: Senna TAB 8.6 mg TAB PO SCH (08:02)
[2023-03-25] MEDS: Multivitamins/Minerals TAB PO SCH (08:02)
[2023-03-25] MEDS: Isosorbide Mononit ER 30mg TAB PO SCH (08:02)
[2023-03-25] MEDS: Nicotine GUM 4MG FRUIT FLAVOR PO PRN (11:15)
[2023-03-25] MEDS: Enoxaparin 40 MG/0.4 ML SYR SUBCUT SCH (14:15)
[2023-03-25] MEDS ORDERED: Albuterol/Ipratropium NEB.SOL (2.5/0.5 MG) 3 ML NEB.SOLN INH PRN (19:22)
[2023-03-25] MEDS ORDERED: Insulin GLARGINE 100 un/ml 10 ml VIAL SUBCUT SCH (21:00)
[2023-03-26] MEDS: Carbidopa/Levodop 25/100 MG TAB PO SCH (08:03)
[2023-03-26] MEDS: Multivitamins/Minerals TAB PO SCH (08:04)
[2023-03-26] MEDS: Senna TAB 8.6 mg TAB PO SCH (08:04)
[2023-03-26] MEDS: Isosorbide Mononit ER 30mg TAB PO SCH (08:04)
[2023-03-26] MEDS: Nicotine PATCH 14 MG/24 HR PATCH TRANSDERM SCH (08:04)
[2023-03-26 10:03] VITALS: BP 104/72
== END 2023-03-26 14:30 ==
LOC: ED 08:32 → EDHOLD 08:32 → SUATTDRO 11:55 → MED 15:10
PROVIDERS: ADMIT Internal Medicine; ATTEND Internal Medicine

== ENCOUNTER 2023-04-12 13:52 | Inpatient (IN) ==
[2023-04-12 15:49] LABS: ABS Lymphocytes 0.3 10^3/uL (1.0-4.8); ABS Monocytes 1.1 10^3/uL (0.0-1.1); ABS Nucleated RBC 0.01 10^3/ul; Eosinophil % 0.1 %; Hematocrit 38.4 % (38-53); Hemoglobin 12.8 g/dL (13.2-16.3); Lymphocyte % 2.6 %; Mean Corpuscular Hemoglobin 27.3 pg (27-33); Mean Corpuscular Hgb Conc 33.3 g/dL (31-36); Mean Platelet Volume 8.2 fL (7.5-11.2); Nucleated Red Blood Cells % 0.1 /100 WBC (0.0-0.4); Platelet Count 233 10^3/uL (150-450); Red Blood Count 4.68 10^6/uL (4.06-5.63); Red Cell Distribution Width 15.3 % (12-17); White Blood Count 11.4 10^3/uL (3.6-10.2)
[2023-04-12 16:07] LABS: Albumin 3.3 g/dL (3.2-5.2); Albumin/Globulin Ratio 1.1 (1-3); Calcium 9.4 mg/dL (8.6-10.3); Creatinine, Serum 1.05 mg/dL (0.67-1.17); Potassium 4.4 mmol/L (3.5-5.0); Total Protein 6.3 g/dL (6.4-8.9); eGFR CKD-EPI 78.8 (>60)
[2023-04-12] MEDS ORDERED: cefTRIAXone 1 gm/50 mL D5W 1 GM/50 ML BAG IV ONE (17:07)
[2023-04-12] MEDS ORDERED: Lactated Ringers 1000 ml BAG 1,000 ML IV ONE (18:24)
[2023-04-12] MEDS ORDERED: Dextrose 50% Syringe 50 ml 25 GM/50 ML SYRINGE IV PUSH PRN (18:55)
[2023-04-12] MEDS ORDERED: Morphine 4 MG/ML VIAL (1 ml) IV ONE (18:59)
[2023-04-12] MEDS ORDERED: Enoxaparin 40 MG/0.4 ML SYR SUBCUT SCH (20:00)
[2023-04-12] MEDS: Carbidopa/Levodop 25/100 MG TAB PO SCH (21:11)
[2023-04-12] MEDS: Insulin GLARGINE 100 un/ml 10 ml VIAL SUBCUT SCH (21:51)
[2023-04-12] MEDS ORDERED: Albuterol HFA INHALER 8 gm MDI INH PRN (23:00)
[2023-04-12 23:44] LABS: Urine Appearance Turbid; Urine Bilirubin Negative (Negative); Urine Blood 2+ (Negative); Urine Color Yellow; Urine Glucose 3+(>=500 mg/dL) (Negative); Urine Ketones Negative (Negative); Urine Nitrite Positive (Negative); Urine Protein 2+(100 mg/dL) (Negative); Urine Urobilinogen Negative (Negative)
[2023-04-12 23:49] LABS: Urine Bacteria 1+ (Absent); Urine Red Blood Cell 3+(>10/hpf) (Absent); Urine Squamous Epithelial Cell Present (Absent); Urine White Blood Cell 3+(>20/hpf) (Absent)
[2023-04-13 00:55] LABS: PCO2 Arterial 32 mmHg (35-45); PO2 Arterial 69 mmHg (80-100)
[2023-04-13] MEDS ORDERED: Metoprolol Tartrate 5 mg VIAL 5 ml VIAL (1 mg/ml) IV ONE (01:04)
[2023-04-13] MEDS ORDERED: Enoxaparin 100 MG/ML SYR SUBCUT ONE (01:06)
[2023-04-13 01:17] LABS: TSH Ultra Thyroid Stim Horm 1.51 mcIU/mL (0.34-5.60)
[2023-04-13 01:32] LABS: Osmolality Serum 286 mOsm/kg (275-295)
[2023-04-13] MEDS ORDERED: Acetaminophen IV 1 GM/100ML 1,000 MG/100 ML BAG IV ONE (02:50)
[2023-04-13] MEDS ORDERED: Vancomycin 1,500 MG in NS 0.9% 250 ml 250 ML IVPB SCH (03:00)
[2023-04-13] MEDS ORDERED: Piperacillin/Tazobac ADVAN 3.375 GM in NS 0.9% 100 ml BAG 100 ML IV ONE (03:02)
[2023-04-13] MEDS ORDERED: Zosyn per Pharmacy NOTE FOLLOW UP SCH (04:00)
[2023-04-13] MEDS ORDERED: Lactated Ringers 1000 ml BAG 1,000 ML IV ONE (04:17)
[2023-04-13 04:20] LABS: Hematocrit 36.4 % (38-53); Hemoglobin 12.2 g/dL (13.2-16.3); Mean Corpuscular Hemoglobin 27.1 pg (27-33); Mean Corpuscular Hgb Conc 33.6 g/dL (31-36); Mean Corpuscular Volume 80.6 fL (80-97); Mean Platelet Volume 7.9 fL (7.5-11.2); Platelet Count 229 10^3/uL (150-450); Red Blood Count 4.51 10^6/uL (4.06-5.63); Red Cell Distribution Width 15.7 % (12-17); White Blood Count 10.9 10^3/uL (3.6-10.2)
[2023-04-13 04:35] LABS: Creatinine, Serum 1.23 mg/dL (0.67-1.17); Magnesium 1.7 mg/dL (1.9-2.7); Potassium 4.1 mmol/L (3.5-5.0); eGFR CKD-EPI 65.2 (>60)
[2023-04-13] MEDS ORDERED: Magnesium Sulfate IV 3 GM in NS 0.9% 100 ml BAG 100 ML IVPB ONE (04:40)
[2023-04-13 04:52] LABS: INR 1.26 (0.88-1.18)
[2023-04-13] MEDS ORDERED: Iodixanol (CONTRAST) 320 MG/ML 100 ML SDV IV SCH (04:52)
[2023-04-13] MEDS ORDERED: Cefepime 1 GM in Dextrose 1 GM/50 ML BAG IV SCH (05:00)
[2023-04-13] MEDS ORDERED: ZOSYN 3.375 GM Q8H per EXTENDED INFUSION IV SCH (07:30)
[2023-04-13] MEDS: SPIRIVA Respimat (tiotropium) 2.5 mcg/inh Inhaler INH SCH (08:11)
[2023-04-13] MEDS ORDERED: Isosorbide Mononit ER 30mg TAB PO SCH (09:00)
[2023-04-13] MEDS ORDERED: NS 0.9% 1000 ml BAG 1,000 ML IV SCH (09:30)
[2023-04-13] MEDS: Carbidopa/Levodop 25/100 MG TAB PO SCH ×3 (09:42→20:19)
[2023-04-13] MEDS: VARENICLINE 1 MG PO SCH (09:43)
[2023-04-13] MEDS: Aspirin EC 81 mg TAB.EC (enteric coated) PO SCH (09:43)
[2023-04-13] MEDS: cefTRIAXone 1 gm/50 mL D5W 1 GM/50 ML BAG IV SCH (11:50)
[2023-04-13 13:37] LABS: Albumin 3.2 g/dL (3.2-5.2); Albumin/Globulin Ratio 1.1 (1-3); Creatinine, Serum 1.13 mg/dL (0.67-1.17); Direct Bilirubin 0.1 mg/dL (0.03-0.18); Indirect Bilirubin 0.4 mg/dL (0.3-1.0); Magnesium 2.4 mg/dL (1.9-2.7); Phosphorus 1.8 mg/dL (2.5-5.0); Total Bilirubin 0.5 mg/dL (0.2-1.0); Total Protein 6.2 g/dL (6.4-8.9); eGFR CKD-EPI 72.1 (>60)
[2023-04-13] MEDS ORDERED: Potassium & Sodium Phos 250 mg = 1 PACKET PO ONE (14:30)
[2023-04-13] MEDS ORDERED: cefTRIAXone 1 gm/50 mL D5W 1 GM/50 ML BAG IV SCH (17:00)
[2023-04-13] MEDS: NS 0.9% 1000 ml BAG 1,000 ML IV SCH (17:51)
[2023-04-13] MEDS: Insulin GLARGINE 100 un/ml 10 ml VIAL SUBCUT SCH (20:19)
[2023-04-14] MEDS: NS 0.9% 1000 ml BAG 1,000 ML IV SCH (01:51)
[2023-04-14 06:38] LABS: ABS Eosinophils 0.3 10^3/uL (0.0-0.5); ABS Lymphocytes 0.7 10^3/uL (1.0-4.8); ABS Monocytes 1.2 10^3/uL (0.0-1.1); ABS Neutrophils 6.3 10^3/uL (1.5-7.6); Eosinophil % 3.1 %; Hematocrit 34.1 % (38-53); Hemoglobin 11.6 g/dL (13.2-16.3); Lymphocyte % 7.9 %; Mean Corpuscular Hemoglobin 27.3 pg (27-33); Mean Corpuscular Hgb Conc 34.1 g/dL (31-36); Mean Corpuscular Volume 80.1 fL (80-97); Mean Platelet Volume 7.9 fL (7.5-11.2); Platelet Count 231 10^3/uL (150-450); Red Blood Count 4.26 10^6/uL (4.06-5.63); Red Cell Distribution Width 15.7 % (12-17); White Blood Count 8.4 10^3/uL (3.6-10.2)
[2023-04-14 06:58] LABS: Albumin 2.8 g/dL (3.2-5.2); Calcium 8.4 mg/dL (8.6-10.3); Creatinine, Serum 0.95 mg/dL (0.67-1.17); Globulin 2.7 g/dL (2-4); Phosphorus 1.9 mg/dL (2.5-5.0); Potassium 3.8 mmol/L (3.5-5.0); Total Bilirubin 0.4 mg/dL (0.2-1.0); Total Protein 5.5 g/dL (6.4-8.9); eGFR CKD-EPI 88.8 (>60)
[2023-04-14] MEDS: SPIRIVA Respimat (tiotropium) 2.5 mcg/inh Inhaler INH SCH (07:15)
[2023-04-14] MEDS: Aspirin EC 81 mg TAB.EC (enteric coated) PO SCH (08:43)
[2023-04-14] MEDS: Carbidopa/Levodop 25/100 MG TAB PO SCH ×3 (08:44→20:20)
[2023-04-14] MEDS: VARENICLINE 1 MG PO SCH (08:48)
[2023-04-14] MEDS: cefTRIAXone 1 gm/50 mL D5W 1 GM/50 ML BAG IV SCH (10:48)
[2023-04-14] MEDS: Isosorbide Mononit ER 30mg TAB PO SCH (10:54)
[2023-04-14] MEDS: Potassium & Sodium Phos 250 mg = 1 PACKET PO SCH ×3 (12:15→20:22)
[2023-04-14] MEDS: Insulin GLARGINE 100 un/ml 10 ml VIAL SUBCUT SCH (20:21)
[2023-04-14] MEDS ORDERED: Enoxaparin 40 MG/0.4 ML SYR SUBCUT SCH (21:00)
[2023-04-15 06:13] LABS: ABS Eosinophils 0.4 10^3/uL (0.0-0.5); ABS Lymphocytes 0.7 10^3/uL (1.0-4.8); ABS Monocytes 1.1 10^3/uL (0.0-1.1); ABS Neutrophils 7.6 10^3/uL (1.5-7.6); Eosinophil % 4.2 %; Hematocrit 33.4 % (38-53); Hemoglobin 11.3 g/dL (13.2-16.3); Lymphocyte % 7.4 %; Mean Corpuscular Hemoglobin 27.7 pg (27-33); Mean Corpuscular Hgb Conc 33.9 g/dL (31-36); Mean Corpuscular Volume 81.6 fL (80-97); Platelet Count 245 10^3/uL (150-450); Red Blood Count 4.09 10^6/uL (4.06-5.63); Red Cell Distribution Width 15.9 % (12-17); White Blood Count 9.9 10^3/uL (3.6-10.2)
[2023-04-15 06:30] LABS: Calcium 8.6 mg/dL (8.6-10.3); Creatinine, Serum 0.94 mg/dL (0.67-1.17); Magnesium 1.8 mg/dL (1.9-2.7); Phosphorus 2.2 mg/dL (2.5-5.0); Potassium 3.8 mmol/L (3.5-5.0)
[2023-04-15] MEDS: SPIRIVA Respimat (tiotropium) 2.5 mcg/inh Inhaler INH SCH (07:14)
[2023-04-15] MEDS ORDERED: Magnesium Sulfate 2 gm BAG 2 GM/50 ML BAG IVPB ONE (07:17)
[2023-04-15] MEDS ORDERED: Potassium & Sodium Phos 250 mg = 1 PACKET PO ONE ×2 (07:26→09:54)
[2023-04-15] MEDS: Isosorbide Mononit ER 30mg TAB PO SCH (07:36)
[2023-04-15] MEDS: Aspirin EC 81 mg TAB.EC (enteric coated) PO SCH (07:36)
[2023-04-15] MEDS: Carbidopa/Levodop 25/100 MG TAB PO SCH ×2 (07:36→13:09)
[2023-04-15] MEDS: VARENICLINE 1 MG PO SCH (07:44)
[2023-04-15] MEDS: cefTRIAXone 1 gm/50 mL D5W 1 GM/50 ML BAG IV SCH (08:41)
[2023-04-15 10:04] VITALS: BP 106/62
== END 2023-04-15 13:40 | DRG 871 ==
LOC: ED 13:52 → EDHOLD 13:52 → SUATTDRO 18:36 → MEDTELE 21:30
PROVIDERS: ADMIT Internal Medicine; ATTEND Internal Medicine

== ENCOUNTER 2023-11-16 16:47 | Observation (INO) ==
[2023-11-16 18:33] LABS: ABS Basophils 0.2 10^3/uL (0.0-0.1); ABS Eosinophils 0.1 10^3/uL (0.0-0.5); ABS Lymphocytes 1.7 10^3/uL (1.0-4.8); ABS Monocytes 1.2 10^3/uL (0.0-1.1); ABS Neutrophils 13.2 10^3/uL (1.5-7.6); Eosinophil % 0.6 %; Hematocrit 43.5 % (38-53); Hemoglobin 14.3 g/dL (13.2-16.3); Lymphocyte % 10.1 %; Mean Corpuscular Hemoglobin 27.4 pg (27-33); Mean Platelet Volume 8.4 fL (7.5-11.2); Platelet Count 351 10^3/uL (150-450); Red Blood Count 5.24 10^6/uL (4.06-5.63); Red Cell Distribution Width 15.1 % (12-17); White Blood Count 16.4 10^3/uL (3.6-10.2)
[2023-11-16 18:51] LABS: Albumin/Globulin Ratio 1.5 (1-3); C Reactive Protein 9.66 mg/L (<8.01); Calcium 9.7 mg/dL (8.6-10.3); Creatinine, Serum 1.4 mg/dL (0.67-1.17); Globulin 2.6 g/dL (2-4); Potassium 4.6 mmol/L (3.5-5.0); Total Bilirubin 0.8 mg/dL (0.2-1.0); Total Protein 6.6 g/dL (6.4-8.9); eGFR CKD-EPI 55.4 (>60)
[2023-11-16 19:52] LABS: Urine Appearance Cloudy; Urine Bilirubin Negative (Negative); Urine Blood Negative (Negative); Urine Color Yellow; Urine Glucose 2+(150 mg/dL) (Negative); Urine Ketones Trace (Negative); Urine Nitrite Negative (Negative); Urine Protein Negative (Negative); Urine Specific Gravity 1.023 (1.002-1.030); Urine Urobilinogen Negative (Negative)
[2023-11-16 19:55] LABS: Magnesium 2.1 mg/dL (1.9-2.7)
[2023-11-16 19:58] LABS: High Sensitivity Troponin 1 Hr 9 pg/mL (<20)
[2023-11-16 20:05] LABS: Urine Bacteria 2+ (Absent); Urine Red Blood Cell 3+(>10/hpf) (Absent); Urine Squamous Epithelial Cell Present (Absent); Urine White Blood Cell 3+(>20/hpf) (Absent)
[2023-11-16] MEDS ORDERED: cefTRIAXone 1 gm/50 mL D5W 1 GM/50 ML BAG IV ONE (20:17)
[2023-11-16] MEDS ORDERED: Ondansetron 4 mg VIAL 2 MG/ML 2 ml VIAL IV PRN (21:01)
[2023-11-16] MEDS ORDERED: NS 0.9% 1000 ml BAG 1,000 ML IV SCH (21:15)
[2023-11-16] MEDS ORDERED: Dextrose 50% Syringe 50 ml 25 GM/50 ML SYRINGE IV PUSH PRN (22:25)
[2023-11-16] MEDS: Insulin GLARGINE 100 un/ml 10 ml VIAL SUBCUT SCH (23:30)
[2023-11-17 07:55] LABS: ABS Basophils 0.1 10^3/uL (0.0-0.1); ABS Eosinophils 0.3 10^3/uL (0.0-0.5); ABS Lymphocytes 1.3 10^3/uL (1.0-4.8); ABS Neutrophils 8.2 10^3/uL (1.5-7.6); Eosinophil % 2.6 %; Hematocrit 40.5 % (38-53); Hemoglobin 13.5 g/dL (13.2-16.3); Lymphocyte % 11.8 %; Mean Corpuscular Hemoglobin 27.7 pg (27-33); Mean Corpuscular Hgb Conc 33.3 g/dL (31-36); Mean Corpuscular Volume 83.3 fL (80-97); Mean Platelet Volume 8.2 fL (7.5-11.2); Platelet Count 271 10^3/uL (150-450); Red Blood Count 4.86 10^6/uL (4.06-5.63); Red Cell Distribution Width 15.2 % (12-17); White Blood Count 10.9 10^3/uL (3.6-10.2)
[2023-11-17 08:09] LABS: Calcium 8.4 mg/dL (8.6-10.3); Creatinine, Serum 1.01 mg/dL (0.67-1.17); Magnesium 1.9 mg/dL (1.9-2.7); Potassium 4.3 mmol/L (3.5-5.0)
[2023-11-17] MEDS: SPIRIVA Respimat (tiotropium) 2.5 mcg/inh Inhaler INH SCH ×2 (08:18→08:38)
[2023-11-17] MEDS: Enoxaparin 40 MG/0.4 ML SYR SUBCUT SCH (09:23)
[2023-11-17] MEDS: Isosorbide Mononit ER 30mg TAB PO SCH (09:24)
[2023-11-17] MEDS: Carbidopa/Levodop 25/100 MG TAB PO SCH ×3 (09:25→22:24)
[2023-11-17] MEDS: Aspirin EC 81 mg TAB.EC (enteric coated) PO SCH (09:25)
[2023-11-17] MEDS: Senna TAB 8.6 mg TAB PO SCH (09:26)
[2023-11-17] MEDS: VARENICLINE 1 MG PO SCH (09:27)
[2023-11-17] MEDS ORDERED: Lactated Ringers 1000 ml BAG 1,000 ML IV ONE (10:29)
[2023-11-17] MEDS ORDERED: cefTRIAXone 1 gm/50 mL D5W 1 GM/50 ML BAG IV SCH (21:00)
[2023-11-17] MEDS: Insulin GLARGINE 100 un/ml 10 ml VIAL SUBCUT SCH (22:25)
[2023-11-18] MEDS: Isosorbide Mononit ER 30mg TAB PO SCH (09:50)
[2023-11-18] MEDS: Senna TAB 8.6 mg TAB PO SCH (09:50)
[2023-11-18] MEDS: Carbidopa/Levodop 25/100 MG TAB PO SCH ×2 (09:50→14:41)
[2023-11-18] MEDS: Aspirin EC 81 mg TAB.EC (enteric coated) PO SCH (09:50)
[2023-11-18] MEDS: Enoxaparin 40 MG/0.4 ML SYR SUBCUT SCH (09:51)
[2023-11-18] MEDS: VARENICLINE 1 MG PO SCH (09:59)
[2023-11-18] MEDS: SPIRIVA Respimat (tiotropium) 2.5 mcg/inh Inhaler INH SCH (11:57)
[2023-11-18 14:28] VITALS: BP 107/85
== END 2023-11-18 14:54 ==
LOC: ED 16:47 → EDHOLD 16:47 → SUATTDRO 21:10 → MEDTELE 21:45
PROVIDERS: ADMIT Internal Medicine; ATTEND Hospitalist